=== PATIENT | male | born 1975 | race Caucasian/White ===

== ENCOUNTER 2016-04-14 08:30 | Emergency (ER) | payer OTHER, MEDICAID ==
[~2016-04-14] VITALS: Ht 182.9 cm; Wt 113.4 kg
[~2016-04-14 08:30] MED LIST: AMITRIP; CITA-36; DICLTAB53 OR; GABA600T; LORA10CA7 OR; METH750T3; METO25TA5 OR; NOR10T; RABE20TA5; SIMV-13 OR
[2016-04-14 08:42] VITALS: BP 146/76
[2016-04-14] MEDS ORDERED: HYDROmorphone HCL 2 MG/ML VL IM ONE (10:15)
[2016-04-14] MEDS ORDERED: ONDANSETRON HCL 4 MG/2 ML VIAL IM ONE (10:15)
== END 2016-04-14 11:12 | disposition home or self-care (01) ==
LOC: EDUNIT# 08:30 → ER 08:31
DX: M54.5 Low back pain (principal); G89.4 Chronic pain syndrome; E11.9 Type 2 diabetes mellitus without complications; K21.9 Gastro-esophageal reflux disease without esophagitis; E78.5 Hyperlipidemia, unspecified; I10 Essential (primary) hypertension; F12.10 Cannabis abuse, uncomplicated; F17.210 Nicotine dependence, cigarettes, uncomplicated; Z79.899 Other long term (current) drug therapy; Z98.890 Other specified postprocedural states
CPT/HCPCS: 72131; 96372; 99284; J1170; J2405